=== PATIENT | male | born 1980 | race Caucasian/White ===

== ENCOUNTER → 2023-12-22 08:27 | Outpatient (REF) | payer OTHER, SELFPAY | LOC: MRI 3T 08:27 | PROVIDERS: ATTENDING PHYSICIAN Otolaryngology Otolaryngology/Facial Plastic Surgery; FAMILY PHYSICIAN Family Medicine | DX: H93.A1 Pulsatile tinnitus, right ear (principal) | CPT/HCPCS: 70544; 70547 ==